=== PATIENT | male | born 1955 | race Asian ===

== ENCOUNTER 2021-08-17 11:56 | Emergency (ER) | payer OTHER ==
[2021-08-17 12:17] VITALS: BP 134/91; PULSE 82; TEMP 98.9; BMI 27.4
[2021-08-17] MEDS ORDERED: ACETAMINOPHEN 325 MG TABLET (FP) PO ONE (12:24)
[2021-08-17] MEDS ORDERED: ACETAMINOPHEN 325 MG TABLET (FP) ONE (12:30)
== END 2021-08-17 14:58 | disposition home or self-care (01) ==
LOC: FER 11:56
DX: M25.562 Pain in left knee (principal); W01.0XXA Fall on same level from slipping, tripping and stumbling without subsequent striking against object, initial encounter
CPT/HCPCS: 73562-TC-LT-FY; 99283-25